=== PATIENT | female | born 1965 | race Native Hawaiian/Other Pacific Islander ===

== ENCOUNTER 2016-10-17 08:01 | Emergency (ER) | payer OTHER ==
[~2016-10-17] VITALS: Ht 165.1 cm; Wt 72.6 kg
[2016-10-17 08:10] VITALS: TEMP 97.89
[2016-10-17 09:19] LABS: PLATELET COUNT 211 K/uL (152-353)
[2016-10-17 09:55] LABS: POTASSIUM 3.5 mmol/L (3.6-5.2); SODIUM 140 mmol/L (136-145)
[2016-10-17 10:28] VITALS: BP 151/88
== END 2016-10-17 10:28 | disposition home or self-care (01) ==
LOC: ED 08:01
DX: K29.70 Gastritis, unspecified, without bleeding (principal); B96.81 Helicobacter pylori [H. pylori] as the cause of diseases classified elsewhere
CPT/HCPCS: 80053; 82150; 83690; 85027; 86318; 96360; 96375; 96376; 99284; J2175; J2405

== ENCOUNTER 2017-02-18 21:05 | Emergency (ER) | payer OTHER ==
[~2017-02-18] VITALS: Ht 157.5 cm; Wt 72.6 kg
[2017-02-18 21:18] VITALS: TEMP 98.9
[2017-02-18 21:46] LABS: PLATELET COUNT 144 K/uL (152-353)
[2017-02-18 21:55] LABS: POTASSIUM 3.7 mmol/L (3.6-5.2); SODIUM 143 mmol/L (136-145)
[2017-02-18 22:57] VITALS: BP 131/90
== END 2017-02-18 22:58 | disposition home or self-care (01) ==
LOC: ED 21:05
DX: M94.0 Chondrocostal junction syndrome [Tietze] (principal); R74.0 Nonspecific elevation of levels of transaminase and lactic acid dehydrogenase [LDH]
CPT/HCPCS: 36415; 80053; 82550; 82553; 84484; 85027; 86318; 93005; 99283

== ENCOUNTER 2017-04-03 08:37 | Emergency (ER) | payer OTHER ==
[~2017-04-03] VITALS: Ht 165.1 cm; Wt 72.6 kg
[2017-04-03 08:45] VITALS: TEMP 98
[2017-04-03 09:30] LABS: PLATELET COUNT 294 K/uL (152-353)
[2017-04-03 10:28] LABS: POTASSIUM 3.5 mmol/L (3.6-5.2)
[2017-04-03 12:20] VITALS: BP 89/68
== END 2017-04-03 12:22 | disposition home or self-care (01) ==
LOC: ED 08:37
DX: K27.9 Peptic ulcer, site unspecified, unspecified as acute or chronic, without hemorrhage or perforation (principal); R10.9 Unspecified abdominal pain; R11.2 Nausea with vomiting, unspecified
CPT/HCPCS: 36415; 80048; 80307; 80320; 81000; 85027; 96360; 96372; 99284; G0479; J1885; J2550

== ENCOUNTER 2017-05-01 08:51 | Observation (INO) | payer OTHER ==
[~2017-05-01] VITALS: Ht 167.6 cm; Wt 76.5 kg
[2017-05-01] VITALS (9 sets, daily range): BP systolic 102–128; BP diastolic 57–87; TEMP 97.6–98.6; Ht 167.6 cm; Wt 76.5 kg
[2017-05-01 09:36] LABS: PLATELET COUNT 232 K/uL (152-353)
[2017-05-01 10:04] LABS: POTASSIUM 3.6 mmol/L (3.6-5.2); SODIUM 137 mmol/L (136-145)
[2017-05-01 10:32] LABS: PARTIAL THROMBOPLASTIN TIME 22.7 SECONDS (24.5-33.6)
[2017-05-01] MEDS ORDERED: FLUOXETINE40 MG PO (17:20)
[2017-05-01] MEDS ORDERED: TRAZ100T (17:25)
[2017-05-01] MEDS ORDERED: GABA300C2 PO (17:26)
[2017-05-02] VITALS: BP 74/42; TEMP 97.7
[2017-05-02 04:00] VITALS: BP 96/67; TEMP 97.7
[2017-05-02 08:00] VITALS: BP 88/50; TEMP 98.6
--- NOTE | 2017-05-02 10:54 | NUR ---
22G IV TO THE [facility] D/C AT THIS TIME AND DISCHARGE INSTUCTIONS GIVEN TO PT ALONG WITH NEW PRESCRIPTIONS. PT VERBALIZED UNDERSTANDING AND DISCHARGE PAPERS WERE SIGNED. PT IS AWAITING A RIDE HOME AT THIS TIME.
== END 2017-05-02 11:10 | disposition home or self-care (01) ==
LOC: ED 08:51 → MED/SURG 13:55
DX: R07.89 Other chest pain (principal); R53.1 Weakness
CPT/HCPCS: 36415; 80053; 80307; 81000; 82550; 84484; 85027; 85610; 85730; 93005; 96374; 99220; 99283; G0378; G0479; J2270

== ENCOUNTER 2017-05-11 09:08 | Emergency (ER) | payer OTHER ==
[~2017-05-11] VITALS: Ht 167.6 cm; Wt 72.6 kg
[~2017-05-11 09:08] MED LIST: FLUOXETINE40 MG PO; GABA300C2 PO; TRAZ100T
[2017-05-11 10:15] LABS: PLATELET COUNT 231 K/uL (152-353)
[2017-05-11 10:23] LABS: POTASSIUM 3.8 mmol/L (3.6-5.2); SODIUM 139 mmol/L (136-145)
[2017-05-11 10:44] LABS: PARTIAL THROMBOPLASTIN TIME 23.4 SECONDS (24.5-33.6)
[2017-05-11 12:00] VITALS: BP 145/104; TEMP 97.8
== END 2017-05-11 12:00 | disposition home or self-care (01) ==
LOC: ED 09:08
PROVIDERS: Emergency Medicine
DX: K21.9 Gastro-esophageal reflux disease without esophagitis (principal); K27.9 Peptic ulcer, site unspecified, unspecified as acute or chronic, without hemorrhage or perforation
CPT/HCPCS: 36415; 80053; 81000; 82150; 82550; 82553; 83690; 84484; 85027; 85610; 85730; 86318; 96374; 96375; 99284; J0360; J2405; J3490

== ENCOUNTER 2021-06-12 12:43 | Emergency (ER) | payer OTHER ==
[~2021-06-12] VITALS: Ht 157.5 cm; Wt 72.6 kg
[2021-06-12 15:29] VITALS: BP 144/78; TEMP 98.4
== END 2021-06-12 15:29 | disposition home or self-care (01) ==
LOC: ED 12:43
PROC: 0T2BX0Z Change Drainage Device in Bladder, External Approach (ICD-10-PCS; principal; 2021-06-12)
DX: T83.031A Leakage of indwelling urethral catheter, initial encounter (principal); N39.0 Urinary tract infection, site not specified; Y84.6 Urinary catheterization as the cause of abnormal reaction of the patient, or of later complication, without mention of misadventure at the time of the procedure; Y92.89 Other specified places as the place of occurrence of the external cause
CPT/HCPCS: 81000; 87077; 87086; 87088; 87186; 96372; 99283; J0696; J1885; J2405

== ENCOUNTER 2021-06-15 11:53 | Emergency (ER) | payer OTHER ==
[~2021-06-15] VITALS: Ht 157.5 cm; Wt 72.6 kg
[2021-06-15 12:00] VITALS: BP 122/84; TEMP 97.8
== END 2021-06-15 14:44 | disposition home or self-care (01) ==
LOC: ED 11:53
DX: M54.59 Other low back pain (principal)
CPT/HCPCS: 81000; 87086; 87088; 96372; 99283; J1885